=== PATIENT | male | born 1965 | race Caucasian/White ===

== ENCOUNTER 2017-05-22 15:05 | Observation (INO) | payer MEDICARE, OTHER, MEDICAID ==
[2017-05-22 15:54] LABS: CHLORIDE,CL 104 mEq/L (98-106); SODIUM,NA 138 mEq/L (136-145)
[2017-05-22] MEDS ORDERED: Magnesium Hydroxide 400 MG/5 ML Susp 30 ML Cup PO PRN (16:40)
[2017-05-22] MEDS ORDERED: Sodium Chloride 0.9% 10 ML Syringe FLUSH PRN (16:40)
[2017-05-22] MEDS ORDERED: Ondansetron 4 MG/2 ML SDV IV PRN (16:40)
[2017-05-22] MEDS ORDERED: Ondansetron 4 MG Tab.DIS PO PRN (16:40)
[2017-05-22] MEDS: Sodium Chloride 0.9% 1,000 ML IV SCH ×2 (17:23→20:15)
[2017-05-22] MEDS: Levofloxacin/Dextrose 5%-Water 500 MG in Premix Bag 1 BAG IV SCH (17:24)
[2017-05-22] MEDS: Acetaminophen 325 MG Tab PO PRN ×2 (17:24→23:38)
[2017-05-22] MEDS: Enoxaparin 40 MG/0.4 ML Syringe SUBCUT SCH (20:10)
[2017-05-22] MEDS: Ibuprofen 200 MG Tab PO PRN (20:13)
[2017-05-22] MEDS: Temazepam 15 MG Cap PO PRN (23:38)
[2017-05-23 07:38] LABS: CHLORIDE,CL 103 mEq/L (98-106); SODIUM,NA 140 mEq/L (136-145)
[2017-05-23] MEDS: Acetaminophen 325 MG Tab PO PRN ×2 (08:23→16:09)
[2017-05-23] MEDS: Sodium Chloride 0.9% 1,000 ML IV SCH (11:44)
--- NOTE | 2017-05-23 14:50 | PCM.PN ---
- General Info Date of Service: 05/23/17 Admission Dx/Problem (Free Text): Pyelonephritis Functional Status: Reports: Pain Controlled, Tolerating Diet, Ambulating - Review of Systems General: Reports: Fever, Weakness, Fatigue HEENT: Reports: No Symptoms Pulmonary: Denies: Shortness of Breath, Cough, Wheezing Cardiovascular: Denies: Chest Pain, Edema, Lightheadedness Gastrointestinal: Denies: Abdominal Pain, Constipation, Diarrhea, Nausea, Vomiting Genitourinary: Reports: Dysuria, Frequency Musculoskeletal: Reports: No Symptoms Skin: Reports: No Symptoms Neurological: Reports: No Symptoms Psychiatric: Reports: No Symptoms - Patient Data Vitals - Most Recent: Last Vital Signs Temp 98.2 F 05/23/17 12:00 Pulse 99 05/23/17 12:00 Resp 18 05/23/17 12:00 BP 130/84 05/23/17 12:00 Pulse Ox 94 L 05/23/17 12:00 Weight - Most Recent: 272 lb 1.6 oz I&O - Last 24 Hours: Intake & Output 05/22/17 05/23/17 05/23/17 22:59 06:59 14:59 Intake Total 658 1000 Balance 658 1000 Lab Results Last 24 Hours: Laboratory Results - last 24 hr 05/22/17 05/22/17 05/22/17 Range/Units 15:16 15:16 15:16 WBC 6.6 (5.0-10.0) 10^3/uL RBC 3.96 L (4.50-6.00) 10^6/uL Hgb 13.2 L (14.0-18.0) g/dL Hct 39.5 L (40.0-54.0) % MCV 99.7 H (82.0-94.0) fL MCH 33.3 H (27.0-32.0) pg MCHC 33.4 (33.0-38.0) g/dL RDW Coeff of Helga 13.7 (11.0-15.0) % Plt Count 190 (150-400) 10^3/uL Neut % (Auto) 81.4 (35-85) % Lymph % (Auto) 12.0 (10-55) % Victoria % (Auto) 5.6 (0-16) % Eos % (Auto) 0.8 (0-5) % Baso % (Auto) 0.2 (0-3) % Neut # (Auto) 5.41 (1.80-7.00) 10^3/uL Lymph # (Auto) 0.80 L (1.00-4.80) 10^3/uL Victoria # (Auto) 0.37 (0.00-0.80) 10^3/uL Eos # (Auto) 0.05 (0.00-0.45) 10^3/uL Baso # (Auto) 0.01 10^3/uL Sodium 138 (136-145) mEq/L Potassium 3.8 (3.5-5.0) mEq/L Chloride 104 (98-106) mEq/L Carbon Dioxide 23 (21-32) mmol/L BUN 26 H (7-18) mg/dL Creatinine 1.0 (0.7-1.3) mg/dL Est Cr Clr Drug Dosing TNP Estimated GFR (MDRD) > 60 (>=60) mL/min Glucose 187 H (75-99) mg/dL POC Glucose (75-105) mg/dl Calcium 8.6 (8.4-10.1) mg/dL C-Reactive Protein 52.4 H (0.2-0.8) mg/dL Vitamin B12 (193-986) PG/ML Folate (>8.6) NG/ML Urine Color Yellow (YELLOW) Urine Appearance Clear (CLEAR) Urine pH 5.5 (4.5-8.0) Ur Specific [place] 1.032 H (1.003-1.020) Urine Protein 100 H (NEGATIVE) mg/dL Urine Glucose (UA) Negative (NEGATIVE) mg/dL Urine Ketones Trace H (NEGATIVE) mg/dL Urine Occult Blood Moderate H (NEGATIVE) Urine Nitrite Positive H (NEGATIVE) Urine Bilirubin Negative (NEGATIVE) Urine Urobilinogen 1.0 (0.2-1.0) EU/dL Ur Leukocyte Esterase Moderate H (NEGATIVE) Urine RBC Not seen (0-5) /HPF Urine WBC Packed H (0-5) /HPF Ur Epithelial Cells Few H (NOT SEEN) /HPF Urine Bacteria Few H (NOT SEEN) /HPF 05/22/17 05/23/17 05/23/17 Range/Units 17:03 07:05 07:05 WBC 3.7 L (5.0-10.0) 10^3/uL RBC 3.90 L (4.50-6.00) 10^6/uL Hgb 13.0 L (14.0-18.0) g/dL Hct 39.4 L (40.0-54.0) % MCV 101.0 H (82.0-94.0) fL MCH 33.3 H (27.0-32.0) pg MCHC 33.0 (33.0-38.0) g/dL RDW Coeff of Helga 13.8 (11.0-15.0) % Plt Count 171 (150-400) 10^3/uL Neut % (Auto) 76.5 (35-85) % Lymph % (Auto) 14.2 (10-55) % Victoria % (Auto) 7.1 (0-16) % Eos % (Auto) 1.9 (0-5) % Baso % (Auto) 0.3 (0-3) % Neut # (Auto) 2.81 (1.80-7.00) 10^3/uL Lymph # (Auto) 0.52 L (1.00-4.80) 10^3/uL Victoria # (Auto) 0.26 (0.00-0.80) 10^3/uL Eos # (Auto) 0.07 (0.00-0.45) 10^3/uL Baso # (Auto) 0.01 10^3/uL Sodium 140 (136-145) mEq/L Potassium 3.6 (3.5-5.0) mEq/L Chloride 103 (98-106) mEq/L Carbon Dioxide 27 (21-32) mmol/L BUN 20 H (7-18) mg/dL Creatinine 0.9 (0.7-1.3) mg/dL Est Cr Clr Drug Dosing 106.58 Estimated GFR (MDRD) > 60 (>=60) mL/min Glucose 138 H D (75-99) mg/dL POC Glucose 120 H (75-105) mg/dl Calcium 8.3 L (8.4-10.1) mg/dL C-Reactive Protein 16.7 H (0.2-0.8) mg/dL Vitamin B12 (193-986) PG/ML Folate (>8.6) NG/ML Urine Color (YELLOW) Urine Appearance (CLEAR) Urine pH (4.5-8.0) Ur Specific [place] (1.003-1.020) Urine Protein (NEGATIVE) mg/dL Urine Glucose (UA) (NEGATIVE) mg/dL Urine Ketones (NEGATIVE) mg/dL Urine Occult Blood (NEGATIVE) Urine Nitrite (NEGATIVE) Urine Bilirubin (NEGATIVE) Urine Urobilinogen (0.2-1.0) EU/dL Ur Leukocyte Esterase (NEGATIVE) Urine RBC (0-5) /HPF Urine WBC (0-5) /HPF Ur Epithelial Cells (NOT SEEN) /HPF Urine Bacteria (NOT SEEN) /HPF 05/23/17 Range/Units 07:10 WBC (5.0-10.0) 10^3/uL RBC (4.50-6.00) 10^6/uL Hgb (14.0-18.0) g/dL Hct (40.0-54.0) % MCV (82.0-94.0) fL MCH (27.0-32.0) pg MCHC (33.0-38.0) g/dL RDW Coeff of Helga (11.0-15.0) % Plt Count (150-400) 10^3/uL Neut % (Auto) (35-85) % Lymph % (Auto) (10-55) % Victoria % (Auto) (0-16) % Eos % (Auto) (0-5) % Baso % (Auto) (0-3) % Neut # (Auto) (1.80-7.00) 10^3/uL Lymph # (Auto) (1.00-4.80) 10^3/uL Victoria # (Auto) (0.00-0.80) 10^3/uL Eos # (Auto) (0.00-0.45) 10^3/uL Baso # (Auto) 10^3/uL Sodium (136-145) mEq/L Potassium (3.5-5.0) mEq/L Chloride (98-106) mEq/L Carbon Dioxide (21-32) mmol/L BUN (7-18) mg/dL Creatinine (0.7-1.3) mg/dL Est Cr Clr Drug Dosing Estimated GFR (MDRD) (>=60) mL/min Glucose (75-99) mg/dL POC Glucose (75-105) mg/dl Calcium (8.4-10.1) mg/dL C-Reactive Protein (0.2-0.8) mg/dL Vitamin B12 501 (193-986) PG/ML Folate > 20 (>8.6) NG/ML Urine Color (YELLOW) Urine Appearance (CLEAR) Urine pH (4.5-8.0) Ur Specific [place] (1.003-1.020) Urine Protein (NEGATIVE) mg/dL Urine Glucose (UA) (NEGATIVE) mg/dL Urine Ketones (NEGATIVE) mg/dL Urine Occult Blood (NEGATIVE) Urine Nitrite (NEGATIVE) Urine Bilirubin (NEGATIVE) Urine Urobilinogen (0.2-1.0) EU/dL Ur Leukocyte Esterase (NEGATIVE) Urine RBC (0-5) /HPF Urine WBC (0-5) /HPF Ur Epithelial Cells (NOT SEEN) /HPF Urine Bacteria (NOT SEEN) /HPF Marcel Results Last 24 Hours: Microbiology 05/22/17 15:16 Urine Culture - Preliminary Urine, Voided Gram Negative Rods 05/22/17 17:26 Anaerobic Blood Culture - Final Blood - Venous Med Orders - Current: Current Medications Acetaminophen (Tylenol) 650 mg PO Q4H PRN PRN Reason: Pain (Mild 1-3)/fever Last Admin: 05/23/17 08:23 Dose: 650 mg Enoxaparin Sodium (Lovenox) 40 mg SUBCUT Q24H [facility] Last Admin: 05/22/17 20:10 Dose: 40 mg Levofloxacin/Dextrose 500 mg/ (Premix) 100 mls @ 100 mls/hr IV Q24H [facility] Last Admin: 05/22/17 17:24 Dose: 100 mls/hr Sodium Chloride (Normal Saline) 1,000 mls @ 50 mls/hr IV ASDIRECTED [facility] Last Admin: 05/23/17 11:44 Dose: 125 mls/hr Ibuprofen (Motrin) 400 mg PO Q6H PRN PRN Reason: Fever Last Admin: 05/22/17 20:13 Dose: 400 mg Magnesium Hydroxide (Milk Of Magnesia) 30 ml PO Q12H PRN PRN Reason: Constipation Ondansetron HCl (Zofran Odt) 4 mg PO Q4H PRN PRN Reason: nausea, able to take PO Ondansetron HCl (Zofran) 4 mg IV Q4H PRN PRN Reason: Nausea/Vomiting Sodium Chloride (Saline Flush) 10 ml FLUSH ASDIRECTED PRN PRN Reason: Keep Vein Open Temazepam (Restoril) 15 mg PO BEDTIME PRN PRN Reason: Sleep Last Admin: 05/22/17 23:38 Dose: 15 mg - Exam General: Alert, Oriented HEENT: Mucous Membr. Moist/[place] Neck: Supple Lungs: Clear to Auscultation, Normal Respiratory Effort Cardiovascular: Regular Rate, Regular Rhythm GI/Abdominal Exam: Normal Bowel Sounds, Soft, Non-Tender Back Exam: Normal Inspection Extremities: Normal Inspection, Pedal Edema (trace) Skin: Warm, Dry Neurological: No New Focal Deficit - Problem List & Annotations (1) Pyelonephritis SNOMED Code(s): 81940983 Code(s): N12 - TUBULO-INTERSTITIAL NEPHRITIS, NOT SPCF ACUTE OR CHRONIC Status: Acute Priority: High Current Visit: Yes - Problem List Review Problem List Initiated/Reviewed/Updated: Yes - My Orders Last 24 Hours: My Active Orders 05/22/17 15:16 CULTURE URINE [RM] Routine 05/22/17 16:40 Up ad Jenae [RC] .PRN Acetaminophen [Tylenol] 650 mg PO Q4H PRN Magnesium Hydroxide [Milk of Magnesia] 30 ml PO Q12H PRN Ondansetron [Zofran ODT] 4 mg PO Q4H PRN Ondansetron [Zofran] 4 mg IV Q4H PRN Sodium Chloride 0.9% [Saline Flush] 10 ml FLUSH ASDIRECTED PRN Temazepam [Restoril] 15 mg PO BEDTIME PRN Blood Culture x2 Reflex Set [OM.PC] Stat Peripheral IV Insertion Adult [OM.PC] Routine Resuscitation Status Routine 05/22/17 16:41 Patient Status [ADT] Routine Oxygen Therapy [RC] .PRN Vital Signs [RC] 0000,0400,0800,1200,1600,199905/22/17 16:43 Peripheral IV Care [RC] 799,199905/22/17 16:45 Ibuprofen [Motrin] 400 mg PO Q6H PRN Sodium Chloride 0.9% [Normal Saline] 1,000 ml IV ASDIRECTED 05/22/17 17:00 Levofloxacin/Dextrose 5%-Water [Levaquin in D5W 500 MG/100 ML] 500 mg Premix Bag 1 bag IV Q24H 05/22/17 17:26 CULTURE BLOOD [BC] Stat CULTURE BLOOD [BC] Stat 05/22/17 20:00 Enoxaparin [Lovenox] 40 mg SUBCUT Q24H 05/22/17 Dinner Regular Diet [DIET] 05/24/17 05:11 BASIC METABOLIC PANEL,BMP [CHEM] AM C-REACTIVE PROTEIN [CHEM] AM CBC WITH AUTO DIFF [HEME] AM - Assessment Assessment:: Pyelonephritis - Plan Plan:: Patient feeling better today. Less abdominal pressure and burning as yesterday. Still up to the bathroom frequently. Temp high of 100 since admit. Feels less achy now. Tolerating dietary intake. Labs today do show improvement, CRP down from 52 to 16. WBC down to 3.7. Will continue IV fluids but reduce rate to 50. Continue IV antibiotics until culture back. Blood cultures at this point negative. Reassess labs in am. Possible discharge in am.
[2017-05-23] MEDS: Levofloxacin/Dextrose 5%-Water 500 MG in Premix Bag 1 BAG IV SCH (17:05)
[2017-05-23] MEDS: Ibuprofen 200 MG Tab PO PRN (18:00)
[2017-05-23] MEDS: Enoxaparin 40 MG/0.4 ML Syringe SUBCUT SCH (19:58)
[2017-05-24] MEDS: Temazepam 15 MG Cap PO PRN (00:27)
[2017-05-24 07:29] LABS: CHLORIDE,CL 105 mEq/L (98-106); SODIUM,NA 140 mEq/L (136-145)
[2017-05-24 11:34] VITALS: BP 129/58
[2017-05-24] MEDS: Levofloxacin/Dextrose 5%-Water 500 MG in Premix Bag 1 BAG IV SCH (13:15)
--- NOTE | 2017-05-25 09:25 | PCM.DCSUM1 ---
Discharge Summary - Hospital Course Free Text/Narrative:: Patient presented to clinic with concerns of urinary incontinence, fever and abdominal pressure. Had noted pain with urination. Temp in clinic 102. Work up did show significant UTI. CRP 52, WBC normal. He was also noting hesitancy with urination. Admitted for IV fluids, antibiotics. - Discharge Data Discharge Date: 05/24/17 Discharge Disposition: Home, Self-Care 01 Condition: Good - Discharge Diagnosis/Problem(s) (1) Pyelonephritis SNOMED Code(s): 69966854 ICD Code: N12 - TUBULO-INTERSTITIAL NEPHRITIS, NOT SPCF ACUTE OR CHRONIC Status: Acute Priority: High - Patient Summary/Data Complications: none Hospital Course: Patient has done well through stay. Has had slow improvement of urinary pressure, incontinence. Did spike a fever each evening but afebrile this am. Admits urinary pressure/abdominal discomfort is resolved. He has had slow improvement of labs, down from 52 to 11 now. WBC lower at 3.4. Tolerating meals without difficulty. Ambulating. - Patient Instructions Diet: Usual Diet as Tolerated Activity: As Tolerated Notify Provider of: Fever, Increased Pain, Nausea and/or Vomiting - Discharge Plan Prescriptions/Med Rec: Levofloxacin [Levaquin] 500 mg PO Q24H #10 tablet Home Medications: Home Meds Acetaminophen/Diphenhydramine [Tylenol Pm Ex-Strength Caplet] 1 tab PO BEDTIME 05/22/17 [History] Ascorbic Acid [Vitamin C] 1,000 mg PO DAILY 05/22/17 [History] Desonide 1 applic TOP BID PRN 05/22/17 [History] Ibuprofen 800 mg PO Q6H PRN 05/22/17 [History] Multivitamin [Multivitamins] 1 tab PO DAILY 05/22/17 [History] Naproxen Sodium [Aleve] 220 mg PO BID PRN 05/22/17 [History] Vitamin E 100 unit PO DAILY PRN 05/22/17 [History] Levofloxacin [Levaquin] 500 mg PO Q24H #10 tablet 05/24/17 [Rx] Referrals: Gayle Pagan PA [ED Midlevel Provider] - (Follow up in [place] in 10 days with Yoana for recheck) - Discharge Summary/Plan Comment DC Time >30 min.: No Discharge Summary/Plan Comment: Discharge home with usual meds. Start Levaquin daily. Push fluids. Follow up in 10 days in clinic. - General Info Date of Service: 05/24/17 Admission Dx/Problem (Free Text: Pyelonephritis Functional Status: Reports: Pain Controlled, Tolerating Diet, Ambulating, Urinating - Review of Systems General: Reports: Fever. Denies: Weakness, Fatigue, Malaise HEENT: Reports: No Symptoms Pulmonary: Denies: Shortness of Breath, Cough Cardiovascular: Denies: Chest Pain, Edema, Lightheadedness Gastrointestinal: Denies: Abdominal Pain, Nausea, Vomiting Genitourinary: Reports: Frequency Musculoskeletal: Reports: No Symptoms Skin: Reports: No Symptoms Neurological: Reports: No Symptoms - Patient Data Vitals - Most Recent: Last Vital Signs Temp 98.3 F 05/24/17 11:33 Pulse 89 05/24/17 11:33 Resp 16 05/24/17 11:33 BP 129/58 L 05/24/17 11:33 Pulse Ox 97 05/24/17 11:33 Weight - Most Recent: 272 lb 1.6 oz TRISTA Results - Last 24 hrs: Microbiology 05/22/17 17:26 Aerobic Blood Culture - Preliminary Blood NO GROWTH AFTER 2 DAYS Anaerobic Blood Culture - Preliminary NO GROWTH AFTER 2 DAYS 05/22/17 17:26 Aerobic Blood Culture - Preliminary Blood - Venous NO GROWTH AFTER 2 DAYS Anaerobic Blood Culture - Final 05/22/17 15:16 Urine Culture - Final Urine, Voided Escherichia Coli Med Orders - Current: Current Medications Discontinued Medications Acetaminophen (Tylenol) 650 mg PO Q4H PRN PRN Reason: Pain (Mild 1-3)/fever Last Admin: 05/23/17 16:09 Dose: 650 mg Enoxaparin Sodium (Lovenox) 40 mg SUBCUT Q24H [facility] Last Admin: 05/23/17 19:58 Dose: 40 mg Levofloxacin/Dextrose 500 mg/ (Premix) 100 mls @ 100 mls/hr IV Q24H [facility] Last Admin: 05/24/17 13:15 Dose: 100 mls/hr Sodium Chloride (Normal Saline) 1,000 mls @ 50 mls/hr IV ASDIRECTED [facility] Last Admin: 05/23/17 11:44 Dose: 125 mls/hr Ibuprofen (Motrin) 400 mg PO Q6H PRN PRN Reason: Fever Last Admin: 05/23/17 18:00 Dose: 400 mg Magnesium Hydroxide (Milk Of Magnesia) 30 ml PO Q12H PRN PRN Reason: Constipation Ondansetron HCl (Zofran Odt) 4 mg PO Q4H PRN PRN Reason: nausea, able to take PO Ondansetron HCl (Zofran) 4 mg IV Q4H PRN PRN Reason: Nausea/Vomiting Sodium Chloride (Saline Flush) 10 ml FLUSH ASDIRECTED PRN PRN Reason: Keep Vein Open Temazepam (Restoril) 15 mg PO BEDTIME PRN PRN Reason: Sleep Last Admin: 05/24/17 00:27 Dose: 15 mg - Exam General: Reports: Alert, Oriented HEENT: Reports: Mucous Membr. Moist/[place] Neck: Reports: Supple Lungs: Reports: Clear to Auscultation, Normal Respiratory Effort Cardiovascular: Reports: Regular Rate, Regular Rhythm GI/Abdominal Exam: Normal Bowel Sounds, Soft, Non-Tender, Hernia Extremities: Normal Inspection, Pedal Edema (trace) Skin: Reports: Warm, Dry Neurological: Reports: No New Focal Deficit *Q Meaningful Use (DIS) - VTE *Q VTE Criteria *Q: - Stroke *Q Stroke Criteria *Q: - AMI *Q AMI Criteria *Q:
== END 2017-05-24 14:48 | disposition home or self-care (01) ==
LOC: CC.MS 15:05 → CC.FCMC 15:05 → UNDOADMOB 16:22 → CC.MS 16:22
PROVIDERS: ADMIT Physician Assistant Medical; ATTEND Family Medicine
DX: N12 Tubulo-interstitial nephritis, not specified as acute or chronic (principal); Z79.899 Other long term (current) drug therapy
CPT/HCPCS: 36415; 80048; 81001; 82607; 82746; 82962; 85025; 86140; 87040; 87086; 87088; 87186; 96361; 96365; 96366; 96372; A9270; G0378; J1650; J1956; J7030; 99217; 99220; 99225

== ENCOUNTER 2020-10-21 05:16 | Emergency (ER) | payer MEDICARE, OTHER, MEDICAID ==
[2020-10-21 05:32] VITALS: BP 137/83; PULSE 104
--- NOTE | 2020-10-21 06:16 | EDM.PDOC ---
ED HPI GENERAL MEDICAL PROBLEM - General Chief Complaint: Genitourinary Problem Stated Complaint: "It hurts when I urinate" Time Seen by Provider: 10/21/20 05:55 Source of Information: Reports: Patient History Limitations: Reports: No Limitations - History of Present Illness INITIAL COMMENTS - FREE TEXT/NARRATIVE: Leslye is 54 yo male who presents to the ED with concerns of a UTI. States he woke up with the urge to void and had some discomfort with urinating. Admits he has had to void a lot since waking up. Denies any flank pain. No fevers. Penis Pain Score (Numeric/FACES): 9 - Related Data Allergies Allergy/AdvReac Type Severity Reaction Status Date / Time No Known Allergies Allergy Verified 10/21/20 05:28 Home Meds: Home Meds Acetaminophen/Diphenhydramine [Tylenol Pm Ex-Strength Caplet] 1 tab PO BEDTIME 05/22/17 [History] Ascorbic Acid [Vitamin C] 1,000 mg PO DAILY 05/22/17 [History] Multivitamin [Multivitamins] 1 tab PO DAILY 05/22/17 [History] Naproxen Sodium [Aleve] 220 mg PO DAILY PRN 05/22/17 [History] Vitamin E 100 unit PO DAILY PRN 05/22/17 [History] Aspirin 81 mg PO DAILY 04/23/20 [History] Past Medical History HEENT History: Reports: Hard of Hearing Genitourinary History: Reports: UTI, Recurrent Psychiatric History: Reports: Developmental Delay - Past Surgical History HEENT Surgical History: Reports: Other (See Below) Other HEENT Surgeries/Procedures: right ear surgery Social & Family History - Tobacco Use Tobacco Use Status *Q: Never Tobacco User Second Hand Smoke Exposure: No - Caffeine Use Caffeine Use: Reports: Coffee, Soda - Recreational Drug Use Recreational Drug Use: No ED ROS GENERAL - Review of Systems Review Of Systems: See Below Constitutional: Denies: Fever, Chills HEENT: Reports: No Symptoms Respiratory: Reports: No Symptoms Cardiovascular: Reports: No Symptoms Endocrine: Reports: No Symptoms GI/Abdominal: Reports: No Symptoms : Reports: Dysuria, Pain, Urgency. Denies: Flank Pain Musculoskeletal: Reports: No Symptoms Skin: Reports: No Symptoms Neurological: Reports: No Symptoms ED EXAM, RENAL/ - Physical Exam Exam: See Below Exam Limited By: No Limitations General Appearance: Alert, No Apparent Distress Respiratory/Chest: No Respiratory Distress, Lungs Clear, Normal Breath Sounds, No Accessory Muscle Use Cardiovascular: Regular Rate, Rhythm, No Murmur GI/Abdominal: Soft, Non-Tender, Other (large reducibile umbilical hernia) (Male) Exam: Suprapubic Fullness, Other. No: Circumcised, Cremasteric Reflex, Inguinal Lymphadenopathy, Scrotal Swelling, Urethral Discharge Back Exam: No: CVA Tenderness (L), CVA Tenderness (R) Neurological: Alert Psychiatric: Normal Affect, Normal Mood Skin Exam: Warm, Dry, Intact Course - Vital Signs Last Recorded V/S: Last Vital Signs Temp 98.5 F 10/21/20 05:31 Pulse 104 H 10/21/20 05:31 Resp 20 10/21/20 05:31 BP 137/83 10/21/20 05:31 Pulse Ox 96 10/21/20 05:31 - Orders/Labs/Meds Orders: Active Orders 24 hr Category Date Time Status CULTURE URINE [RM] Stat Lab 10/21/20 05:53 Received Labs: Laboratory Tests 10/21/20 Range/Units 05:53 Urine Color Venita (YELLOW) Urine Appearance Cloudy (CLEAR) Urine pH 6.0 (4.5-8.0) Ur Specific Burns >= 1.030 H (1.003-1.020) Urine Protein 100 H (NEGATIVE) mg/dL Urine Glucose (UA) Negative (NEGATIVE) mg/dL Urine Ketones 80 H (NEGATIVE) mg/dL Urine Occult Blood Large H (NEGATIVE) Urine Nitrite Positive H (NEGATIVE) Urine Bilirubin Negative (NEGATIVE) Urine Urobilinogen 1.0 (0.2-1.0) EU/dL Ur Leukocyte Esterase Small H (NEGATIVE) Urine RBC >100 H (0-5) /HPF Urine WBC >100 H (0-5) /HPF Ur Epithelial Cells Few H (NOT SEEN) /HPF Urine Bacteria Many H (NOT SEEN) /HPF Departure - Departure Time of Disposition: 06:26 Disposition: Home, Self-Care 01 Clinical Impression: UTI, Urinary tract infectious disease - Discharge Information Instructions: Urinary Tract Infection, Adult Forms: ED Department Discharge Additional Instructions: 1) Levofloxacin 500mg daily for 7 days 2) Pyridium 200mg three times a day for 2 days for burning with urination 3) Follow up if symptoms persist or any concerns. 4) Push fluids 5) Handout given for UTI Sepsis Event Note (ED) - Evaluation Sepsis Screening Result: No Definite Risk - Focused Exam Vital Signs: Vital Signs Temp Pulse Resp BP Pulse Ox 10/21/20 05:31 98.5 F 104 H 20 137/83 96 - Problem List & Annotations (1) UTI, Urinary tract infectious disease SNOMED Code(s): 48365356 Code(s): N39.0 - URINARY TRACT INFECTION, SITE NOT SPECIFIED Status: Acute - My Orders Last 24 Hours: My Active Orders 10/21/20 05:53 CULTURE URINE [RM] Stat - Assessment/Plan Last 24 Hours: My Active Orders 10/21/20 05:53 CULTURE URINE [RM] Stat Plan: Urinalysis was positive today. Will obtain urine culture. Medications sent to local pharmacy and shot given today as well. See additional instructions.
[2020-10-21] MEDS ORDERED: cefTRIAXone 1 GM Vial IM ONE (06:19)
== END 2020-10-21 06:39 | disposition home or self-care (01) ==
LOC: CC.ED 05:16
DX: N39.0 Urinary tract infection, site not specified (principal); K42.9 Umbilical hernia without obstruction or gangrene; Z79.82 Long term (current) use of aspirin
CPT/HCPCS: 81001; 87086; 87088; 87186; 96372; 99283; 99284; J0696; J2001

== ENCOUNTER 2022-05-17 08:45 | Emergency (ER) | payer MEDICARE, OTHER, MEDICAID ==
[2022-05-17 09:15] VITALS: BP 146/84; PULSE 79
[2022-05-17 09:30] LABS: CHLORIDE,CL 102 mEq/L (98-106); ESTIMATED GFR 79 mL/min (>=60); SODIUM,NA 139 mEq/L (136-145)
== END 2022-05-17 09:53 | disposition home or self-care (01) ==
LOC: CC.ED 08:45
DX: R00.2 Palpitations (principal); N39.0 Urinary tract infection, site not specified; Z79.899 Other long term (current) drug therapy; Z79.84 Long term (current) use of oral hypoglycemic drugs; Z79.82 Long term (current) use of aspirin
CPT/HCPCS: 36415; 71046; 80053; 84484; 85025; 86140; 93005; 99284; 99285

== ENCOUNTER 2023-08-06 19:08 | Emergency (ER) | payer MEDICARE, OTHER, MEDICAID ==
[2023-08-06 19:18] VITALS: BP 154/81; PULSE 98
[2023-08-06 19:56] LABS: BASOPHILS ABSOLUTE AUTO 0.02 10^3/uL (0.00-0.50); BASOPHILS PERCENT AUTO 0.4 % (0-1); EOSINOPHILS ABSOLUTE AUTO 0.18 10^3/uL (0.00-1.50); EOSINOPHILS PERCENT AUTO 3.8 % (0-6); HEMATOCRIT 35.8 % (42.0-52.0); HEMOGLOBIN 12.2 g/dL (14.0-18.0); IMMATURE GRAN ABSOLUTE AUTO 0.01 10^3/uL (0.00-0.49); IMMATURE GRAN PERCENT AUTO 0.2 % (0.0-4.9); LYMPHOCYTES ABSOLUTE AUTO 1.84 10^3/uL (0.60-5.00); LYMPHOCYTES PERCENT AUTO 39.3 % (24-44); MEAN CORPUSCULAR HEMOGLOBIN 33.7 pg (27.0-32.0); MEAN CORPUSCULAR HGB CONC 34.1 g/dL (32.0-36.0); MEAN CORPUSCULAR VOLUME 98.9 fL (83.0-97.0); MONOCYTES ABSOLUTE AUTO 0.35 10^3/uL (0.00-1.50); MONOCYTES PERCENT AUTO 7.5 % (0-10); NEUTROPHILS ABSOLUTE AUTO 2.28 x10^3/uL (1.80-8.00); NEUTROPHILS PERCENT AUTO 48.8 % (41-71); PLATELET COUNT,PLT 183 10^3/uL (150-400); RED BLOOD CELL COUNT 3.62 x10^6/uL (4.50-6.00); WHITE BLOOD CELL COUNT,WBC 4.7 10^3/uL (4.0-11.0)
[2023-08-06 20:10] LABS: ALBUMIN 3.1 g/dL (3.4-5.0); BILIRUBIN TOTAL 0.4 mg/dL (0.0-1.0); C-REACTIVE PROTEIN 6.25 mg/dL (<=0.30); CALCIUM 9.1 mg/dL (8.4-10.1); EST CRCL DRUG DOSING (CG) 89.46 mL/min; POTASSIUM,K 3.8 mEq/L (3.5-5.0); PROTEIN TOTAL,TP 7.8 g/dL (6.4-8.2)
[2023-08-06] MEDS ORDERED: Lidocaine/Prilocaine 2.5-2.5% Crm 5 GM Tube TOP ONE (20:11)
[2023-08-06] MEDS ORDERED: cefTRIAXone 1 GM Vial IM ONE (20:29)
== END 2023-08-06 21:10 | disposition home or self-care (01) ==
LOC: CC.ED 19:08
DX: L03.115 Cellulitis of right lower limb (principal); E11.9 Type 2 diabetes mellitus without complications; Z20.822 Contact with and (suspected) exposure to COVID-19; Z79.84 Long term (current) use of oral hypoglycemic drugs; Z79.82 Long term (current) use of aspirin; Z79.899 Other long term (current) drug therapy
CPT/HCPCS: 36415; 80053; 85025; 86140; 87804; 96372; 99283; 99284; J0696; U0002

== ENCOUNTER 2024-04-10 16:50 | Emergency (ER) | payer MEDICARE, OTHER, MEDICAID | END 2024-04-10 17:10 | disposition home or self-care (01) | LOC: CC.ED 16:50 | DX: L03.116 Cellulitis of left lower limb (principal); E11.9 Type 2 diabetes mellitus without complications; Z79.82 Long term (current) use of aspirin; Z79.84 Long term (current) use of oral hypoglycemic drugs; Z79.899 Other long term (current) drug therapy | CPT/HCPCS: 99283 ==

== ENCOUNTER 2025-07-17 07:38 | Emergency (ER) | payer MEDICARE, OTHER, MEDICAID ==
[2025-07-17 07:47] VITALS: BP 135/71; PULSE 89
[2025-07-17 08:18] LABS: BASOPHILS ABSOLUTE AUTO 0.01 10^3/uL (0.00-0.50); BASOPHILS PERCENT AUTO 0.1 % (0-1); EOSINOPHILS ABSOLUTE AUTO 0.14 10^3/uL (0.00-1.50); EOSINOPHILS PERCENT AUTO 1.9 % (0-6); IMMATURE GRAN ABSOLUTE AUTO 0.02 10^3/uL (0.00-0.49); IMMATURE GRAN PERCENT AUTO 0.3 % (0.0-4.9); LYMPHOCYTES ABSOLUTE AUTO 1.29 10^3/uL (0.60-5.00); LYMPHOCYTES PERCENT AUTO 17.2 % (24-44); MONOCYTES ABSOLUTE AUTO 0.41 10^3/uL (0.00-1.50); MONOCYTES PERCENT AUTO 5.5 % (0-10); NEUTROPHILS ABSOLUTE AUTO 5.61 x10^3/uL (1.80-8.00); NEUTROPHILS PERCENT AUTO 75.0 % (41-71); PLATELET COUNT,PLT 188 10^3/uL (150-400); RED BLOOD CELL COUNT 3.50 x10^6/uL (4.50-6.00); WHITE BLOOD CELL COUNT,WBC 7.5 10^3/uL (4.0-11.0)
[2025-07-17 08:36] LABS: ALANINE AMINOTRANSFERASE,ALT 35.0 U/L (12-78); ASPARTATE AMNIOTRANSFERASE,AST 25.0 U/L (15-37); BILIRUBIN TOTAL 0.9 mg/dL (0.0-1.0); BLOOD UREA NITROGEN,BUN 28.0 mg/dL (7-18); CARBON DIOXIDE,CO2 27.0 mmol/L (21-32); CHLORIDE,CL 105.0 mEq/L (98-106); CREATININE 1.0 mg/dL (0.7-1.3); EST CRCL DRUG DOSING (CG) 87.3 mL/min; GLUCOSE RANDOM 147.0 mg/dL (75-99); POTASSIUM,K 3.8 mEq/L (3.5-5.0); PROTEIN TOTAL,TP 7.7 g/dL (6.4-8.2); SODIUM,NA 140.0 mEq/L (136-145)
[2025-07-17 08:40] LABS: ESTIMATED GFR 87.0 mL/min (>=60)
== END 2025-07-17 09:32 | disposition home or self-care (01) ==
LOC: CC.ED 07:38
DX: E11.9 Type 2 diabetes mellitus without complications (principal); Z79.82 Long term (current) use of aspirin; Z79.84 Long term (current) use of oral hypoglycemic drugs; Z79.899 Other long term (current) drug therapy
CPT/HCPCS: 36415; 73630-RT; 80053; 85025; 86140; 99283; 99284

== ENCOUNTER 2025-07-20 13:34 | Emergency (ER) | payer MEDICARE, OTHER, MEDICAID ==
[2025-07-20] MEDS: methylPREDNISolone Acetate 80 MG/ML SDV IM ONE (14:56)
[2025-07-20 16:07] VITALS: BP 167/81; PULSE 80
== END 2025-07-20 16:06 | disposition home or self-care (01) ==
LOC: CC.ED 13:34
DX: J02.9 Acute pharyngitis, unspecified (principal); E11.9 Type 2 diabetes mellitus without complications; Z79.899 Other long term (current) drug therapy; Z79.82 Long term (current) use of aspirin
CPT/HCPCS: 96372; 99283; J1010

== ENCOUNTER 2025-07-26 17:44 | Emergency (ER) | payer MEDICARE, OTHER, MEDICAID ==
[2025-07-26 18:14] LABS: APPEARANCE,URINE SLIGHTLY CLOUDY (CLEAR); GLUCOSE,URINE NEGATIVE (NEGATIVE); OCCULT BLOOD,URINE LARGE (NEGATIVE)
[2025-07-26 18:18] LABS: EPITHELIAL CELLS,URINE NOT SEEN /HPF (NOT SEEN)
[2025-07-26 18:46] LABS: BASOPHILS ABSOLUTE AUTO 0.02 10^3/uL (0.00-0.50); BASOPHILS PERCENT AUTO 0.3 % (0-1); EOSINOPHILS ABSOLUTE AUTO 0.16 10^3/uL (0.00-1.50); EOSINOPHILS PERCENT AUTO 2.7 % (0-6); IMMATURE GRAN ABSOLUTE AUTO 0.02 10^3/uL (0.00-0.49); IMMATURE GRAN PERCENT AUTO 0.3 % (0.0-4.9); LYMPHOCYTES ABSOLUTE AUTO 1.82 10^3/uL (0.60-5.00); LYMPHOCYTES PERCENT AUTO 31.0 % (24-44); MONOCYTES ABSOLUTE AUTO 0.27 10^3/uL (0.00-1.50); MONOCYTES PERCENT AUTO 4.6 % (0-10); NEUTROPHILS ABSOLUTE AUTO 3.58 x10^3/uL (1.80-8.00); NEUTROPHILS PERCENT AUTO 61.1 % (41-71); PLATELET COUNT,PLT 239 10^3/uL (150-400); RED BLOOD CELL COUNT 3.55 x10^6/uL (4.50-6.00); WHITE BLOOD CELL COUNT,WBC 5.9 10^3/uL (4.0-11.0)
[2025-07-26 18:58] LABS: ALANINE AMINOTRANSFERASE,ALT 35.0 U/L (12-78); ASPARTATE AMNIOTRANSFERASE,AST 26.0 U/L (15-37); BILIRUBIN TOTAL 0.5 mg/dL (0.0-1.0); BLOOD UREA NITROGEN,BUN 28.0 mg/dL (7-18); CARBON DIOXIDE,CO2 29.0 mmol/L (21-32); CHLORIDE,CL 104.0 mEq/L (98-106); CREATININE 0.8 mg/dL (0.7-1.3); EST CRCL DRUG DOSING (CG) 109.13 mL/min; ESTIMATED GFR 102.0 mL/min (>=60); GLUCOSE RANDOM 85.0 mg/dL (75-99); POTASSIUM,K 3.9 mEq/L (3.5-5.0); PROTEIN TOTAL,TP 7.8 g/dL (6.4-8.2); SODIUM,NA 142.0 mEq/L (136-145)
[2025-07-26 19:46] VITALS: BP 136/116
[2025-07-26 20:44] VITALS: PULSE 77
== END 2025-07-26 20:45 | disposition home or self-care (01) ==
LOC: CC.ED 17:44
DX: N21.0 Calculus in bladder (principal); E11.9 Type 2 diabetes mellitus without complications; Z79.84 Long term (current) use of oral hypoglycemic drugs; Z79.899 Other long term (current) drug therapy; Z79.82 Long term (current) use of aspirin
CPT/HCPCS: 36415; 74176; 80053; 81001; 82947; 83735; 85025; 99284; A9270-GY